=== PATIENT | female | born 1975 | race African-American/Black ===

== ENCOUNTER 2016-12-25 20:39 | Emergency (ER) | payer BC ==
[~2016-12-25] VITALS: Ht 177.8 cm; Wt 54.4 kg
[~2016-12-25 20:39] MED LIST: HYDR-2758 PO; LEVO25TA55 PO; LEVO500T59 PO; LEVO88TA2 PO; TAMS0.4C97 PO
--- NOTE | 2016-12-25 20:59 | PHYS DOC ---
Past Medical History Past Medical History: Hypothyroid, Kidney Stone Additional Past Medical Histor: THYROID CANCER Past Surgical History: Other Additional Past Surgical Histo: thyroidectomy Alcohol Use: None Drug Use: None Adult General Chief Complaint Chief Complaint: ABDOMINAL PAIN HPI HPI Patient is a 41 year old female presenting to the emergency department for sudden onset left flank and left lower abdominal pain that started approximately 1.5 hours prior to arrival. Patient says that she has had a kidney stone in the past but this feels very similar she has severe sudden onset pain with nausea and vomiting. She appears uncomfortable but is nontoxic in appearance. Review of Systems Review of Systems Constitutional: Denies fever or chills [] Respiratory: Denies cough or shortness of breath [] Cardiovascular: No additional information not addressed in HPI [] GI: + abdominal pain, nausea, vomiting. No bloody stools or diarrhea [] : Denies dysuria or hematuria [] Musculoskeletal: + back pain. No joint pain [] Integument: Denies rash or skin lesions [] Neurologic: Denies headache, focal weakness or sensory changes [] Current Medications Current Medications Current Medications Medications (Trade) Dose Ordered Sig/Melissa Start Time Stop Time Status Last Admin Dose Admin Fentanyl Citrate (Fentanyl 2ml Vial) 75 mcg 1X ONCE 12/25/16 21:30 12/25/16 21:31 DC 12/25/16 21:29 75 MCG Ketorolac Tromethamine (Toradol) 30 mg 1X ONCE 12/25/16 21:30 12/25/16 21:31 DC 12/25/16 21:29 30 MG Ondansetron HCl (Zofran) 8 mg 1X ONCE 12/25/16 21:30 12/25/16 21:31 DC 12/25/16 21:30 4 MG Oxycodone/ Acetaminophen (Percocet 5/325) 2 tab 1X ONCE 12/25/16 23:30 12/25/16 23:31 Potassium Chloride (Klor-Con) 40 meq 1X ONCE 12/25/16 23:30 12/25/16 23:31 Sodium Chloride 1,000 ml @ 1,000 mls/hr 1X ONCE 12/25/16 21:30 12/25/16 22:29 DC 12/25/16 21:30 1,000 MLS/HR Tamsulosin HCl (Flomax) 0.4 mg 1X ONCE 12/25/16 23:30 12/25/16 23:31 Allergies Allergies Allergies Coded Allergies Type Severity Reaction Last Updated Verified codeine Allergy Intermediate "I DONT KNOW THEY JUST TOLD ME I AM" 03/15/16 Yes Physical Exam Physical Exam Constitutional: Well developed, well nourished, no acute distress, non-toxic appearance. [] Cardiovascular:Heart rate regular rhythm, no murmur [] Lungs & Thorax: Bilateral breath sounds clear to auscultation [] Abdomen: Bowel sounds normal, soft, no tenderness, no masses, no pulsatile masses. [] Skin: Warm, dry, no erythema, no rash. [] Back: No tenderness, + L CVA tenderness. [] Current Patient Data Vital Signs Vital Signs Date Time Temp Pulse Resp B/P (MAP) Pulse Ox O2 Delivery O2 Flow Rate FiO2 12/25/16 21:29 22 100 Room Air 12/25/16 20:48 98.7 71 145/94 (111) 98.7 Lab Values Laboratory Tests Test 12/25/16 20:01 12/25/16 20:50 12/25/16 21:00 POC Urine HCG, Qualitative Hcg negative (Negative) Urine Collection Type Unknown Urine Color Yellow Urine Clarity Clear Urine pH 7.0 Urine Specific [place] 1.025 Urine Protein Negative mg/dL (NEG-TRACE) Urine Glucose (UA) Negative mg/dL (NEG) Urine Ketones (Stick) Trace mg/dL (NEG) Urine Blood Large (NEG) Urine Nitrite Negative (NEG) Urine Bilirubin Negative (NEG) Urine Urobilinogen Dipstick 1.0 mg/dL (0.2 mg/dL) Urine Leukocyte Esterase Negative (NEG) Urine RBC Tntc /HPF (0-2) Urine WBC 11-20 /HPF (0-4) Urine Squamous Epithelial Cells Mod /LPF Urine Bacteria Moderate /HPF (0-FEW) Urine Mucus Mod /LPF Urine Opiates Screen Neg (NEG) Urine Methadone Screen Neg (NEG) Urine Barbiturates Neg (NEG) Urine Phencyclidine Screen Neg (NEG) Urine Amphetamine/Methamphetamine Neg (NEG) Urine Benzodiazepines Screen Neg (NEG) Urine Cocaine Screen Neg (NEG) Urine Cannabinoids Screen Pos (NEG) Urine Ethyl Alcohol Neg (NEG) White Blood Count 5.8 x10^3/uL (4.0-11.0) Red Blood Count 3.53 x10^6/uL (3.50-5.40) Hemoglobin 12.1 g/dL (12.0-15.5) Hematocrit 35.7 % (36.0-47.0) L Mean Corpuscular Volume 101 fL (79-100) H Mean Corpuscular Hemoglobin 34 pg (25-35) Mean Corpuscular Hemoglobin Concent 34 g/dL (31-37) Red Cell Distribution Width 13.6 % (11.5-14.5) Platelet Count 204 x10^3/uL (140-400) Neutrophils (%) (Auto) 54 % (31-73) Lymphocytes (%) (Auto) 39 % (24-48) Monocytes (%) (Auto) 7 % (0-9) Eosinophils (%) (Auto) 1 % (0-3) Basophils (%) (Auto) 0 % (0-3) Neutrophils # (Auto) 3.1 x10^3uL (1.8-7.7) Lymphocytes # (Auto) 2.3 x10^3/uL (1.0-4.8) Monocytes # (Auto) 0.4 x10^3/uL (0.0-1.1) Eosinophils # (Auto) 0.0 x10^3/uL (0.0-0.7) Basophils # (Auto) 0.0 x10^3/uL (0.0-0.2) Sodium Level 140 mmol/L (136-145) Potassium Level 3.3 mmol/L (3.5-5.1) L Chloride Level 103 mmol/L (98-107) Carbon Dioxide Level 25 mmol/L (21-32) Anion Gap 12 (6-14) Blood Urea Nitrogen 12 mg/dL (7-20) Creatinine 1.3 mg/dL (0.6-1.0) H Estimated GFR (Cockcroft-Gault) 54.4 BUN/Creatinine Ratio 9 (6-20) Glucose Level 92 mg/dL (70-99) Calcium Level 9.2 mg/dL (8.5-10.1) Total Bilirubin 0.5 mg/dL (0.2-1.0) Aspartate Amino Transferase (AST) 92 U/L (15-37) H Alanine Aminotransferase (ALT) 79 U/L (14-59) H Alkaline Phosphatase 47 U/L (46-116) Total Protein 8.3 g/dL (6.4-8.2) H Albumin 4.7 g/dL (3.4-5.0) Albumin/Globulin Ratio 1.3 (1.0-1.7) Lipase 198 U/L (73-393) Ethyl Alcohol Level < 10 mg/dL (0-10) Laboratory Tests 12/25/16 21:00 Laboratory Tests 12/25/16 21:00 EKG EKG [] Radiology/Procedures Radiology/Procedures Examination: CT of the abdomen pelvis without contrast HISTORY: History of left flank pain COMPARISON: 03/14/2016 TECHNIQUE: Axial CT images of the abdomen pelvis were performed without contrast. Coronal and sagittal reformatted performed Exposure: One or more of the following individualized dose reduction techniques were utilized for this examination: 1. Automated exposure control 2. Adjustment of the mA and/or kV according to patient size 3. Use of iterative reconstruction technique FINDINGS: The visualized bibasilar lungs grossly appears unremarkable. No evidence of free air identified in the abdomen. Examination is extremely limited without oral and IV contrast. The examination is limited due to also due to lack of significant intra-abdominal fat and due to diffuse mottling artifact which limits evaluation. The visualized noncontrasted liver, spleen, grossly appears unremarkable. Probable mild distended gallbladder. The stomach is mildly distended. The small bowel does not appear to be dilated. The appendix cannot be identified on this examination. Feces and gas noted throughout the colon. Urinary bladder is mildly distended. 3 mm intrarenal collecting system calculus identified in the right kidney. There is a punctate 2 mm intrarenal collecting system calculus identified in the left kidney. Probable moderate left-sided hydronephrosis and hydroureter identified. There is a tiny 3 mm calculus identified at the left uterovesical junction, best visualized on series 2 image 185. The evaluation of the pelvis is limited due to streak artifact. Mild aortic atherosclerosis. No evidence of lytic bony destructive lesion. IMPRESSION: 1. Extremely limited examination due to lack of significant intra-abdominal fat and due to marking artifact. Grossly there appears to be moderate left-sided hydronephrosis and hydroureter with probable 3 mm calculus identified in the left uterovesical junction. Electronically signed by: Rosendo June MD (12/25/2016 10:30 PM) [facility] DICTATED and SIGNED BY: ROSENDO JUNE MD DATE: 12/25/162222 Course & Med Decision Making Course & Med Decision Making Patient with clinical picture and CT consistent with left distal ureter stone. Her pain improved to a 3 out of 10 after Toradol and fentanyl and she has no further nausea and vomiting. Stone is quite low and her symptoms are controlled with a small to moderate sized stone she'll be discharged with Flomax told to take ibuprofen drink clear fluids and follow with her primary care provider for urology follow-up. I told her [place] does not have a urologist on staff anymore and if she wants further urologic care she needs to get referral by PCP or follow with another hospital such as or [facility]. Patient aware and agreeable with plan for discharge and verbalized understanding of the need for short-term follow-up in the strict ER return precautions discussed including worsening pain fevers vomiting or other general concerns. Of note there is no signs of urine tract infection in her urine. Dragon Disclaimer Dragon Disclaimer This electronic medical record was generated, in whole or in part, using a voice recognition dictation system. Departure Departure Impression: Primary Impression: Ureteral stone with hydronephrosis Disposition: HOME, SELF-CARE Condition: STABLE Referrals: NO PCP (PCP) Patient Instructions: Ureteral Colic Additional Instructions: TAKE 400MG OF IBUPROFEN EVERY 6 HOURS AND THE PERCOCET FOR BREAKTHROUGH PAIN. DRINK PLENTY OF FLUIDS. IF YOU HAVE WORSENING PAIN, FEVERS, VOMITING YOU CAN COME BACK HERE, JUST BE AWARE THAT WE DO NOT HAVE A UROLOGIST ON STAFF AND MAY HAVE TO TRANSFER YOU TO [facility] OR [facility]. Scripts Tamsulosin Hcl (FLOMAX) 0.4 Mg Cap.er.24h 1 CAP PO DAILY, #10 CAP 0 Refills Prov: RAFAT STAPLETON DO 12/25/16 Ondansetron (ZOFRAN ODT) 4 Mg Tab.rapdis 4 MG PO BID Y for NAUSEA/VOMITING, #14 TAB Prov: RAFAT STAPLETON DO 12/25/16 Oxycodone/Apap 5-325 (PERCOCET 5-325 MG TABLET) 1 Each Tablet 1 TAB PO PRN Q6HRS Y for PAIN, #20 TAB 0 Refills Prov: RAFAT STAPLETON DO 12/25/16 RAFAT STAPLETON DO Dec 25, 2016 20:59
[2016-12-25 21:14] LABS: BASO % 0 % (0-3); EOS % 1 % (0-3); HEMATOCRIT 35.7 % (36.0-47.0); HEMOGLOBIN 12.1 g/dL (12.0-15.5); LYMPH # 2.3 x10^3/uL (1.0-4.8); LYMPH % 39 % (24-48); MEAN CORPUSCULAR HEMOGLOBIN 34 pg (25-35); MEAN CORPUSCULAR HGB CONC 34 g/dL (31-37); MEAN CORPUSCULAR VOLUME 101 fL (79-100); MONO % 7 % (0-9); NEUT % 54 % (31-73); PLATELET COUNT 204 x10^3/uL (140-400); RED BLOOD COUNT 3.53 x10^6/uL (3.50-5.40); RED CELL DISTRIBUTION WIDTH 13.6 % (11.5-14.5); WHITE BLOOD COUNT 5.8 x10^3/uL (4.0-11.0)
[2016-12-25 21:16] LABS: BILIRUBIN,URINE NEGATIVE (NEG); GLUCOSE,URINE NEGATIVE (NEG); NITRITE,URINE NEGATIVE (NEG); PROTEIN,URINE NEGATIVE (NEG-TRACE)
[2016-12-25 21:23] LABS: BARBITURATES NEG (NEG); BENZODIAZEPINES NEG (NEG); CANNABINOIDS POS (NEG); COCAINE NEG (NEG); METHADONE NEG (NEG); OPIATES NEG (NEG); PHENCYCLIDINE NEG (NEG)
[2016-12-25 21:25] LABS: BACTERIA,URINE MODERATE /HPF (0-FEW); RBC,URINE TNTC /HPF (0-2)
[2016-12-25 21:26] LABS: SQUAMOUS EPITHELIAL CELL,UR MOD /LPF
[2016-12-25 21:27] LABS: CALCIUM 9.2 mg/dL (8.5-10.1); CREATININE 1.3 mg/dL (0.6-1.0); GFR 54.4; POTASSIUM 3.3 mmol/L (3.5-5.1)
[2016-12-25] MEDS ORDERED: ONDANSETRON PF 4 MG/2 ML VIAL. IV ONE (21:30)
[2016-12-25] MEDS ORDERED: KETOROLAC 30 MG/ML INJ. IV ONE (21:30)
[2016-12-25] MEDS ORDERED: IV NORMAL SALINE 1000ML BAG 1,000 ML IV ONE (21:30)
[2016-12-25] MEDS ORDERED: fentaNYL PF VIAL 100 MCG/2 ML VIAL IV ONE (21:30)
[2016-12-25 21:33] LABS: ALBUMIN 4.7 g/dL (3.4-5.0); ALBUMIN/GLOBULIN RATIO 1.3 (1.0-1.7); TOTAL BILIRUBIN 0.5 mg/dL (0.2-1.0); TOTAL PROTEIN 8.3 g/dL (6.4-8.2)
--- NOTE | 2016-12-25 22:33 | RAD ---
Examination: CT of the abdomen pelvis without contrast HISTORY: History of left flank pain COMPARISON: 03/14/2016 TECHNIQUE: Axial CT images of the abdomen pelvis were performed without contrast. Coronal and sagittal reformatted performed Exposure: One or more of the following individualized dose reduction techniques were utilized for this examination: 1. Automated exposure control 2. Adjustment of the mA and/or kV according to patient size 3. Use of iterative reconstruction technique FINDINGS: The visualized bibasilar lungs grossly appears unremarkable. No evidence of free air identified in the abdomen. Examination is extremely limited without oral and IV contrast. The examination is limited due to also due to lack of significant intra-abdominal fat and due to diffuse mottling artifact which limits evaluation. The visualized noncontrasted liver, spleen, grossly appears unremarkable. Probable mild distended gallbladder. The stomach is mildly distended. The small bowel does not appear to be dilated. The appendix cannot be identified on this examination. Feces and gas noted throughout the colon. Urinary bladder is mildly distended. 3 mm intrarenal collecting system calculus identified in the right kidney. There is a punctate 2 mm intrarenal collecting system calculus identified in the left kidney. Probable moderate left-sided hydronephrosis and hydroureter identified. There is a tiny 3 mm calculus identified at the left uterovesical junction, best visualized on series 2 image 185. The evaluation of the pelvis is limited due to streak artifact. Mild aortic atherosclerosis. No evidence of lytic bony destructive lesion. IMPRESSION: 1. Extremely limited examination due to lack of significant intra-abdominal fat and due to marking artifact. Grossly there appears to be moderate left-sided hydronephrosis and hydroureter with probable 3 mm calculus identified in the left uterovesical junction. Electronically signed by: Rosendo June MD (12/25/2016 10:30 PM) [facility]
[2016-12-25] MEDS ORDERED: ONDA4TAB10 PO (23:22)
[2016-12-25] MEDS ORDERED: TAMS0.4C97 PO (23:22)
[2016-12-25] MEDS ORDERED: OXYC-323 PO (23:22)
[2016-12-25] MEDS ORDERED: TAMSULOSIN 0.4 MG CAP.ER.24H. PO ONE (23:30)
[2016-12-25] MEDS ORDERED: oxyCODONE/APAP 5/325 1 TAB TABLET PO ONE (23:30)
[2016-12-25] MEDS ORDERED: POTASSIUM CHLORIDE 20 MEQ TABLET.ER. PO ONE (23:30)
[2016-12-25 23:47] VITALS: BP 131/79
== END 2016-12-26 00:25 | disposition home or self-care (01) ==
LOC: ER 20:39
DX: N13.2 Hydronephrosis with renal and ureteral calculous obstruction (principal); E89.0 Postprocedural hypothyroidism; Z87.442 Personal history of urinary calculi; Z88.5 Allergy status to narcotic agent
CPT/HCPCS: 36415; 74176; 80053; 80307; 81001; 81025; 83690; 85025; 87086; 96361; 96374; 96375; 99285; G0480; J1885; J2405; J3010; J7030; G0479

== ENCOUNTER 2016-12-26 21:49 | Emergency (ER) | payer BC ==
[~2016-12-26] VITALS: Ht 177.8 cm; Wt 54.4 kg
[~2016-12-26 21:49] MED LIST changes: +ONDA4TAB10 PO; +OXYC-323 PO
[2016-12-26 22:42] LABS: BASO # 0.1 x10^3/uL (0.0-0.2); BASO % 1 % (0-3); EOS % 0 % (0-3); HEMATOCRIT 36.9 % (36.0-47.0); HEMOGLOBIN 12.8 g/dL (12.0-15.5); LYMPH # 0.9 x10^3/uL (1.0-4.8); LYMPH % 9 % (24-48); MEAN CORPUSCULAR HEMOGLOBIN 34 pg (25-35); MEAN CORPUSCULAR HGB CONC 35 g/dL (31-37); MEAN CORPUSCULAR VOLUME 99 fL (79-100); MONO % 6 % (0-9); NEUT % 84 % (31-73); PLATELET COUNT 225 x10^3/uL (140-400); RED BLOOD COUNT 3.73 x10^6/uL (3.50-5.40); RED CELL DISTRIBUTION WIDTH 13.8 % (11.5-14.5); WHITE BLOOD COUNT 9.7 x10^3/uL (4.0-11.0)
[2016-12-26 22:53] LABS: CALCIUM 8.7 mg/dL (8.5-10.1); CREATININE 1.7 mg/dL (0.6-1.0); GFR 39.9
[2016-12-26 22:59] LABS: ALBUMIN 4.1 g/dL (3.4-5.0); ALBUMIN/GLOBULIN RATIO 1.1 (1.0-1.7); TOTAL BILIRUBIN 0.8 mg/dL (0.2-1.0); TOTAL PROTEIN 7.9 g/dL (6.4-8.2)
[2016-12-26] MEDS ORDERED: fentaNYL PF VIAL 100 MCG/2 ML VIAL IV ONE (23:30)
[2016-12-27] MEDS ORDERED: KETOROLAC 15 MG/ML VIAL. IV ONE (00:45)
[2016-12-27] MEDS ORDERED: ONDANSETRON PF 4 MG/2 ML VIAL. IV ONE (00:45)
[2016-12-27] MEDS ORDERED: IV NORMAL SALINE 1000ML BAG 1,000 ML IV ONE ×2 (01:30)
[2016-12-27] MEDS ORDERED: KETOROLAC 30 MG/ML INJ. IV ONE (01:30)
[2016-12-27] MEDS ORDERED: HYDROcodone/APAP 5/325MG 1 TAB TABLET PO ONE (03:00)
--- NOTE | 2016-12-27 03:35 | PHYS DOC ---
Past Medical History Past Medical History: Hypothyroid, Kidney Stone Additional Past Medical Histor: THYROID CANCER Past Surgical History: Other Additional Past Surgical Histo: thyroidectomy Alcohol Use: None Drug Use: None Adult General Chief Complaint Chief Complaint: ABDOMINAL PAIN HPI HPI Patient is a 41 year old AA female evaluated in this emergency department last night for left lower quadrant pain who was diagnosed with a kidney stone and return home who presents with nausea vomiting and inability to keep fluids and pain medications down. Patient is unable to keep Zofran down. Patient reports persistent left lower quadrant pain. She denies back pain, fever chills, and sweats. No urinary urgency frequency or dysuria. No other acute symptoms or complaints. Review of Systems Review of Systems Review symptoms as per history of present illness. All other review symptoms are negative. Current Medications Current Medications Current Medications Medications (Trade) Dose Ordered Sig/Melissa Start Time Stop Time Status Last Admin Dose Admin Acetaminophen/ Hydrocodone Bitart (Lortab 5/325) 1 tab 1X ONCE 12/27/16 03:00 12/27/16 03:18 DC 12/27/16 03:08 1 TAB Fentanyl Citrate (Fentanyl 2ml Vial) 50 mcg 1X ONCE 12/27/16 04:15 12/27/16 04:16 DC 12/27/16 04:18 50 MCG Ketorolac Tromethamine (Toradol) 30 mg 1X ONCE 12/27/16 01:30 12/27/16 02:05 DC Morphine Sulfate 4 mg 1X ONCE 12/27/16 06:00 12/27/16 06:01 Ondansetron HCl (Zofran) 8 mg 1X ONCE 12/27/16 00:45 12/27/16 00:46 DC 12/27/16 01:15 8 MG Promethazine HCl 12.5 mg/Sodium Chloride 50.5 ml @ 151.5 mls/ hr PRN Q6HRS PRN 12/27/16 05:45 Sodium Chloride 1,000 ml @ 1,000 mls/hr 1X ONCE 12/27/16 01:30 12/27/16 02:29 DC 12/27/16 01:05 1,000 MLS/HR Allergies Allergies Allergies Coded Allergies Type Severity Reaction Last Updated Verified codeine Allergy Intermediate "I DONT KNOW THEY JUST TOLD ME I AM" 03/15/16 Yes Physical Exam Physical Exam Constitutional: Well developed, well nourished, no acute distress, non-toxic appearance. [] HENT: Normocephalic, atraumatic, bilateral external ears normal, oropharynx moist, no oral exudates, nose normal. [] Eyes: PERRLA, EOMI, conjunctiva normal, no discharge. [] Neck: Normal range of motion, no tenderness, supple, no stridor. [] Cardiovascular:Heart rate regular rhythm, no murmur [] Lungs & Thorax: Bilateral breath sounds clear to auscultation [] Abdomen: Bowel sounds normal, soft, left lower quadrant pain, no tenderness rebound rigidity.[] Skin: Warm, dry, no erythema, no rash. [] Back: No tenderness, no CVA tenderness. [] Extremities: No tenderness, no cyanosis, no clubbing, ROM intact, no edema. [] Neurologic: Alert and oriented X 3, normal motor function, normal sensory function, no focal deficits noted. [] Psychologic: Affect normal, judgement normal, mood normal. [] Current Patient Data Vital Signs Vital Signs Date Time Temp Pulse Resp B/P (MAP) Pulse Ox O2 Delivery O2 Flow Rate FiO2 12/27/16 04:18 16 98 Room Air 12/27/16 03:06 52 12/26/16 22:00 97.7 156/89 (111) 97.7 Lab Values Laboratory Tests Test 12/26/16 22:30 White Blood Count 9.7 x10^3/uL (4.0-11.0) Red Blood Count 3.73 x10^6/uL (3.50-5.40) Hemoglobin 12.8 g/dL (12.0-15.5) Hematocrit 36.9 % (36.0-47.0) Mean Corpuscular Volume 99 fL (79-100) Mean Corpuscular Hemoglobin 34 pg (25-35) Mean Corpuscular Hemoglobin Concent 35 g/dL (31-37) Red Cell Distribution Width 13.8 % (11.5-14.5) Platelet Count 225 x10^3/uL (140-400) Neutrophils (%) (Auto) 84 % (31-73) H Lymphocytes (%) (Auto) 9 % (24-48) L Monocytes (%) (Auto) 6 % (0-9) Eosinophils (%) (Auto) 0 % (0-3) Basophils (%) (Auto) 1 % (0-3) Neutrophils # (Auto) 8.2 x10^3uL (1.8-7.7) H Lymphocytes # (Auto) 0.9 x10^3/uL (1.0-4.8) L Monocytes # (Auto) 0.6 x10^3/uL (0.0-1.1) Eosinophils # (Auto) 0.0 x10^3/uL (0.0-0.7) Basophils # (Auto) 0.1 x10^3/uL (0.0-0.2) Sodium Level 136 mmol/L (136-145) Potassium Level 4.0 mmol/L (3.5-5.1) Chloride Level 99 mmol/L (98-107) Carbon Dioxide Level 26 mmol/L (21-32) Anion Gap 11 (6-14) Blood Urea Nitrogen 10 mg/dL (7-20) Creatinine 1.7 mg/dL (0.6-1.0) H Estimated GFR (Cockcroft-Gault) 39.9 BUN/Creatinine Ratio 6 (6-20) Glucose Level 112 mg/dL (70-99) H Calcium Level 8.7 mg/dL (8.5-10.1) Total Bilirubin 0.8 mg/dL (0.2-1.0) Aspartate Amino Transferase (AST) 80 U/L (15-37) H Alanine Aminotransferase (ALT) 70 U/L (14-59) H Alkaline Phosphatase 48 U/L (46-116) C-Reactive Protein, Quantitative 1.0 mg/L (0-3.3) Total Protein 7.9 g/dL (6.4-8.2) Albumin 4.1 g/dL (3.4-5.0) Albumin/Globulin Ratio 1.1 (1.0-1.7) Lipase 113 U/L (73-393) Laboratory Tests 12/26/16 22:30 Laboratory Tests 12/26/16 22:30 EKG EKG [] Radiology/Procedures Radiology/Procedures [CT abdomen pelvis: Moderate hydronephrosis, hydroureter with ~ 5 mm stone at L UVJ. ] Course & Med Decision Making Course & Med Decision Making Pertinent Labs and Imaging studies reviewed. (See chart for details) [CT abdomen pelvis reviewed and reveals distal UVJ stone moderate [place] nephrosis. Patient given nausea, pain medication and IV fluids in the ED. No vomiting observed. Symptoms significant improved. We'll continue supportive treatment with PCP follow-up for referral to urology. Return precautions reviewed. Patient name and nausea pearly controlled. Repeat narcotics given. Patient continues to have nausea without vomiting. Unfortunately, there is no urology coverage at this facility. Dr. Hwang at [facility] accepts for transfer patient. ] [place] Disclaimer Dragon Disclaimer This electronic medical record was generated, in whole or in part, using a voice recognition dictation system. Departure Departure Impression: Primary Impression: Nausea and vomiting Additional Impression: Kidney stone Disposition: 01 HOME, SELF-CARE Condition: GOOD Patient Instructions: Kidney Stones, [id number], Nausea and Vomiting, Easy-to -Read Additional Instructions: Please go home and rest. Take Phenergan for nausea and increase fluids. Take Zofran for additional nausea relief.Continue hydrocodone and Flomax. Follow-up with your PCP for urology referral. Return to the ED if new or worsening symptoms. Problem Qualifiers AMI PETERSON DO Dec 27, 2016 03:35
[2016-12-27] MEDS ORDERED: fentaNYL PF VIAL 100 MCG/2 ML VIAL IV ONE (04:15)
[2016-12-27] MEDS ORDERED: PROMETHAZINE 12.5 MG in IV NORMAL SALINE 50ML 50 ML IV PRN (05:45)
[2016-12-27] MEDS ORDERED: MORPHINE SULFATE 4 MG/ML DISP.SYRIN. IV ONE (06:00)
--- NOTE | 2016-12-27 06:21 | RAD ---
INDICATION: left flank pain COMPARISON: December 25, 2016 TECHNIQUE: Axial CT images were obtained through the abdomen and pelvis without intravenous contrast. Limited assessment of solid organ structures and vasculature secondary to lack of intravenous contrast. One or more of the following individualized dose reduction techniques were utilized for this examination: 1. Automated exposure control; 2. Adjustment of the mA and/or kV according to patient size; 3. Use of iterative reconstruction technique. FINDINGS: Mild groundglass opacities at lung bases. There is some calcific atherosclerosis identified. Poor evaluation of abdominal aorta secondary to lack of contrast and very little intra-abdominal fat. No definite intrahepatic bile duct dilation. Pancreas poorly evaluated without contrast. There may be some edema within the intra-abdominal fat. Splenic calcified granulomas. Bilateral nonobstructive renal stones. Left greater than right perinephric edema. Left-sided moderate hydronephrosis and hydroureter. Repeat demonstration of several calcifications within the left hemipelvis. One of these may be secondary to a left distal ureter stone. Measures approximately 3 mm. Bladder is distended with urine at time of exam. Free fluid in the pelvis. Poor evaluation of the bowel without intravenous or oral contrast there is not definite dilated loops of bowel suggest obstruction. There are some degenerative changes of the spine. IMPRESSION: 1. Repeat demonstration of left-sided hydronephrosis and hydroureter with a suspected 3 mm left distal ureter stone. 2. Very limited evaluation of the solid organ structures, bowel and vasculature secondary to lack of intravenous and oral contrast as well as lack of intra-abdominal fat. 3. Multiple additional nonobstructive bilateral renal stones. 4. There is some edema seen throughout the soft tissues as well as small amount of free fluid. 5. Mild groundglass opacities at lower lungs. Could be secondary to mild edema or pneumonitis. 6. Some of the regions of bowel wall including the colon appear mildly prominent. This could be secondary to lack of distention but cannot exclude colonic wall thickening on this exam from causes such as colitis. Electronically signed by: Emile Reaves MD (12/27/2016 6:18 AM) [id number]
[2016-12-27 07:17] VITALS: BP 134/84
== END 2016-12-27 08:38 | disposition home or self-care (01) ==
LOC: ER 21:49
DX: N13.2 Hydronephrosis with renal and ureteral calculous obstruction (principal); E89.0 Postprocedural hypothyroidism; Z88.5 Allergy status to narcotic agent; Z87.442 Personal history of urinary calculi
CPT/HCPCS: 36415; 74176; 80053; 83690; 85025; 86140; 96361; 96365; 96375; 96376; 99285; J1885; J2405; J2550; J3010; J7030

== ENCOUNTER 2021-09-12 08:09 | Inpatient (IN) | payer BC ==
[~2021-09-12] VITALS: Ht 177.8 cm; Wt 59.2 kg
[~2021-09-12 08:09] MED LIST changes: -HYDR-2758 PO; +HYDR-2761 PO; -LEVO88TA2 PO; +LEVO88TA70 PO; -OXYC-323 PO; +OXYC1TAB15 PO
--- NOTE | 2021-09-12 09:01 | PDOC2 ---
NEUROLOGY CONSULT Date of Service DOS: DATE: 09/12/21 TIME: 08:00 Current Medications Current Medications Active Scripts Active Flomax (Tamsulosin Hcl) 0.4 Mg Cap.er.24h 1 Cap PO DAILY Zofran Odt (Ondansetron) 4 Mg Tab.rapdis 4 Mg PO BID PRN Percocet 5-325 Mg Tablet (Oxycodone/Acetaminophen) 1 Each Tablet 1 Tab PO PRN Q6HRS PRN Levaquin (Levofloxacin) 500 Mg Tablet 500 Mg PO DAILY06 Flomax (Tamsulosin Hcl) 0.4 Mg Cap.er.24h 0.4 Mg PO QHS Synthroid (Levothyroxine Sodium) 88 Mcg Tablet 88 Mcg PO DAILY07 Hydrocodone-Apap 5-325 (Hydrocodone Bit/Acetaminophen) 1 Each Tablet 1 Tab PO PRN Q4HRS PRN Allergies Allergies: Allergies Coded Allergies Type Severity Reaction Last Updated Verified codeine Allergy Intermediate "I DONT KNOW THEY JUST TOLD ME I AM" 03/15/16 Yes ROS Review of System The patient denies any associated fevers, chills, headache, ear pain, rhinorrhea, sore throat, stiff neck, productive cough, chest pain, shortness of breath, back or flank pain, abdominal pain, nausea, vomiting, diarrhea, constipation, dysuria, rash, numbness, weakness, tingling, incontinence, difficulty ambulating, or diaphoresis. Physical Exam Physical Exam General: Well developed, well nourished, no acute distress, well appearing HEENT: Pupils equally round and reactive to light, EOMI, no discharge, normal conjunctiva Neck: Supple, no nuchal rigidity, no JVD, trachea midline, no tenderness Cardiac: RRR, no murmurs, no gallops, no rubs Chest/Lungs: CTAB, no wheeze, no rhonchi, no crackles Abdomen: soft, non-distended, no guarding, no peritoneal signs, non-tender Back: No tenderness Extremities: no edema, pulses intact, non-tender,capillary refill <3 sec bilate ral upper and lower extremities, Neuro: Alert and oriented x 4, no focal deficits, normal speech Vitals Vitals: Vital Signs Date Time Temp Pulse Resp B/P (MAP) Pulse Ox O2 Delivery O2 Flow Rate FiO2 09/12/21 08:28 98.6 54 18 155/85 (108) 100 Room Air 98.6 Labs Labs Laboratory Tests Test 09/12/21 08:26 Glucose (Fingerstick) 82 mg/dL (70-99) Laboratory Tests Test 09/12/21 08:26 Glucose (Fingerstick) 82 mg/dL (70-99) Assessment/Plan Assessment/Plan [facility] Consult Note # Demographics Consult Type: Acute Stroke Level 1 (0-4.5 hrs) Patient Location: Emergency Room First Name: avinash Last Name: Age: 46 Gender: Female Facility: [facility] Time of Initial Page (Central Time): 09/12/2021, 08:50 Time of Return Call (Central Time): 09/12/2021, 08:50 # HPI History: 46F says she was trying to put toothbrush back after brushing with right arm. Last well time per patient was 3 months ago. Clarification for symptoms she presented with today, she did not feel normal upon waking. Normal to bed last night. # Scores Level of Consciousness 1a: [0] = Alert; keenly responsive LOC Questions 1b: [0] = Answers both questions correctly LOC Commands 1c: [0] = Performs both tasks correctly Best Gaze 2: [0] = Normal Visual 3: [0] = No visual loss Facial Palsy 4: [0] = Normal symmetrical movements Motor Arm Left 5a: [0] = No drift Motor Arm Right 5b: [1] = Drift Motor Leg Left 6a: [0] = No drift Motor Leg Right 6b: [0] = No drift Limb Ataxia 7: [0] = Absent Sensory 8: [0] = Normal Best Language 9: [0] = No aphasia Dysarthria 10: [0] = Normal Extinction and Inattention 11: [0] = No abnormality NIHSS Total: 1 # PMH-FH-SH Past Medical History: hypothyroid Medications: synthroid # Assessment Impression: Ischemic Stroke (Acute) # Plan Thrombolytic/Intervention: NOT IV Thrombolysis or IA Intervention candidate Thrombolytic Exclusion (< 3 hour window): time of onset unclear Thrombolytic Exclusion: > 4.5 hours Intraarterial Exclusion: clinically consistent with small vessel disease Target Blood Pressure: SBP < 220 Labs: B12 TSH Imaging: (urgency: routine): MR Angiogram Head without contrast MR Angiogram Neck with contrast MRI Brain without contrast Diagnostic Test: echo with bubble study Medication: aspirin 81 mg PLUS clopidogrel (Plavix) 75 mg for 21 days, then monotherapy therafter start statin with goal of LDL < 70 Other: LDL < 70 permissive hypertension telemetry monitoring I have discussed my recommendations with the referring provider Additional Recommendations: If stroke not found on MRI brain, this could be complex migraine or other mimic. Disposition: admit # Logistics Telemedicine: Interactive 2 way audio and visual telecommunication technology was utilized during this visit DARCY SUN MD September 12, 2021 09:01
--- NOTE | 2021-09-12 09:02 | RAD ---
CT STROKE HEAD W/O History: Reason: stroke alert / Spl. Instructions: / History: Comparison: None. Technique: Noncontrast CT imaging was performed of the head. Exposure: One or more of the following individualized dose reduction techniques were utilized for thi s examination: 1. Automated exposure control 2. Adjustment of the mA and/or kV according to patient size 3. Use of iterative reconstruction technique. Findings: No intracranial hemorrhage. No mass effect. No hydrocephalus. Extra-axial spaces are unremarkable. Imaged orbits are unremarkable. Imaged paranasal sinuses and mastoid air cells are clear. No acute ca lvarial fracture. Small right frontal calvarial outer table benign exostosis measures 0.6 x 0.3 cm. Impression: 1. No acute intracranial abnormality. FOR INTERNAL CODING PURPOSES Critical result: Findings discussed with NAIDA GOFF MD at 09/12/2021 8:58 AM. RESULT CODE: (C) Electronically signed by: Donny Lockett DO (09/12/2021 8:59 AM) [id number]
--- NOTE | 2021-09-12 09:03 | RAD ---
XR CHEST 1V History: Stroke alert Comparison: None. Technique: AP radiograph of the chest. Findings: The lungs are adequately and symmetrically inflated. No airspace consolidation, pleural effusion or p neumothorax. The cardiomediastinal silhouette and pulmonary vasculature are within normal limits. No acute osseous abnormality. Soft tissues are unremarkable. Impression: 1. No acute cardiopulmonary process. Electronically signed by: Scott Tsai MD (09/12/2021 9:00 AM) [id number]
[2021-09-12 09:09] LABS: BASO # 0.1 x10^3/uL (0.0-0.2); BASO % 1 % (0-3); EOS % 1 % (0-3); HEMATOCRIT 36.5 % (36.0-47.0); HEMOGLOBIN 12.3 g/dL (12.0-15.5); LYMPH # 1.7 x10^3/uL (1.0-4.8); LYMPH % 27 % (24-48); MEAN CORPUSCULAR HEMOGLOBIN 34 pg (25-35); MEAN CORPUSCULAR HGB CONC 34 g/dL (31-37); MEAN CORPUSCULAR VOLUME 102 fL (79-100); MONO # 0.4 x10^3/uL (0.0-1.1); MONO % 6 % (0-9); NEUT # 3.9 x10^3/uL (1.8-7.7); NEUT % 65 % (31-73); PLATELET COUNT 305 x10^3/uL (140-400); RED BLOOD COUNT 3.58 x10^6/uL (3.50-5.40); RED CELL DISTRIBUTION WIDTH 13.6 % (11.5-14.5); WHITE BLOOD COUNT 6.1 x10^3/uL (4.0-11.0)
--- NOTE | 2021-09-12 10:15 | PDOC1 ---
History and Physical Date of Admission Date of Admission DATE: 09/12/21 TIME: 10:14 Identification/Chief Complaint Chief Complaint Right arm weakness Source Source: Patient History of Present Illness History of Present Illness Ms Arreguin is a 46yo female with PMHx hypothyroidism s/p total thyroidectomy who comes into ED c/o right hand uncoordination. At 7:15 in the morning says she was trying to put toothbrush into her mouth and missed, and missed trying to place it back after brushing with right arm. She also tried to login using her password on her computer for work and continue to hit the wrong babcock. She notes she is also had bilateral lower extremity numbness that has been going on for 3 months. She further notes overall fatigue that of been going on for the last 3 years. She is previously status post total thyroidectomy was on levothyroxine 100 mcg and had not filled it for 3 years until 1 month ago when she reinitiated therapy. On review of systems she notes urinary frequency which has been going on for the last 3 months as well. She has some occasional black spots in her vision but otherwise no significant visual complaints. Has family history of CVA in her father and cerebral aneurysm in her younger sister. in ED had lab work WBC 6.1, Hb 12.3 with MCV 102, platelets 305, NA 142, K4, BUN 13, CR 1.1, glucose 79, calcium 8.8, high-sensitivity troponin 11, INR 1.1, PTT 31 , EKG sinus rhythm rate of 53 bpm QTC 521 otherwise normal axis and intervals. No ST segment elevation or T WI. Chest radiograph with no acute process noncontrast CT head with no acute intracranial abnormality. NIHSS was 1 with right hand pronator drift dysmetria. Teleneurology was consulted in the ED and given her score and variability in timing the symptoms was recommended aspirin and Plavix for 21 days and to continue aspirin thereafter high intensity statin follow-up TSH A1c lipids and start rehab modalities to control blood pressure. Past Medical History Endocrine: Hypothyroidism Past Surgical History Past Surgical History Thyroidectomy Past Surgical History: Family History Family History Younger sister -cerebral aneurysm Family History: Stroke (Father) Social History Smoke: <1 pack per day ALCOHOL: none Drugs: None Current Medications Current Medications Active Scripts Active Flomax (Tamsulosin Hcl) 0.4 Mg Cap.er.24h 1 Cap PO DAILY Zofran Odt (Ondansetron) 4 Mg Tab.rapdis 4 Mg PO BID PRN Percocet 5-325 Mg Tablet (Oxycodone/Acetaminophen) 1 Each Tablet 1 Tab PO PRN Q6HRS PRN Levaquin (Levofloxacin) 500 Mg Tablet 500 Mg PO DAILY06 Flomax (Tamsulosin Hcl) 0.4 Mg Cap.er.24h 0.4 Mg PO QHS Synthroid (Levothyroxine Sodium) 88 Mcg Tablet 88 Mcg PO DAILY07 Hydrocodone-Apap 5-325 (Hydrocodone Bit/Acetaminophen) 1 Each Tablet 1 Tab PO PRN Q4HRS PRN Allergies Allergies: Coded Allergies: codeine (Verified Allergy, Intermediate, "I DONT KNOW THEY JUST TOLD ME I AM" , 03/15/16) ROS General: No: Chills, Night Sweats, Fatigue, Malaise, Appetite, Other PSYCHOLOGICAL ROS: No: Anxiety, Behavioral Disorder, Concentration difficultie, Decreased libido, Depression, Disorientation, Hallucinations, Hostility, Irritablity, Memory difficulties, Mood Swings, Obsessive thoughts, Physical abuse, Sexual abuse, Sleep disturbances, Suicidal ideation, Other Eyes: Yes Blurry vision; No Decreased vision, No Double vision, No Dry eyes, No Excessive tearing, No Eye Pain, No Itchy Eyes, No Loss of vision, No Photophobia, No [place]omata, No Uses contacts, No Uses glasses, No Other HEENT: No: Heacaches, Visual Changes, Hearing change, Nasal congestion, Nasal discharge, Oral lesions, Sinus pain, Sore Throat, Epistaxis, Sneezing, Snoring, Tinnitus, Vertigo, Vocal changes, Other ALLERGY AND IMMUNOLOGY: No: Hives, Insect Bite Sensitivity, Itchy/Watery Eyes, Nasal Congestion, Post Nasal Drip, Seasonal Allergies, Other Hematological and Lymphatic: No: Bleeding Problems, Blood Clots, Blood Transfusions, Brusing, Night Sweats, Pallor, Swollen Lymph Nodes, Other ENDOCRINE: No: Breast Changes, Galactorrhea, Hair Pattern Changes, Hot Flashes, Malaise/lethargy, Mood Swings, Palpitations, Polydipsia/polyuria, Skin Changes, Temperature Intolerance, Unexpected Weight Changes, Other Breast: No New/Changing Breast Lumps, No Nipple changes, No Nipple discharge, No Other Respiratory: No: Cough, Hemoptysis, Orthopnea, Pleuritic Pain, Shortness of breath, SOB with excertion, Sputum Changes, Stridor, Tachypnea, Wheezing, Other Cardiovascular: No Chest Pain, No Palpitations, No Orthopnea, No Paroxysmal Noc. Dyspnea, No Edema, No Lt Headedness, No Other Gastrointestinal: No Nausea, No Vomiting, No Abdominal Pain, No Diarrhea, No Constipation, No Melena, No Hematochezia, No Other Genitourinary: No Dysuria, No Frequency, No Incontinence, No Hematuria, No Retention, No Discharge, No Urgency, No Pain, No Flank Pain, No Other, No , No , No , No , No , No , No Musculoskeletal: Yes Muscular Weakness; No Gait Disturbance, No Joint Pain, No Joint Stiffness, No Joint Swelling, No Muscle Pain, No Pain In:, No Swelling In:, No Other Neurological: Yes Numbness/Tingling; No Behavorial Changes, No Bowel/Bladder ControlChng, No Confusion, No Dizziness, No Gait Disturbance, No Headaches, No Impaired Coord/balance, No Memory Loss, No Seizures, No Speech Problems, No Tremors, No Visual Changes, No Weakness, No Other Skin: No Dry Skin, No Eczema, No Hair Changes, No Lumps, No Mole Changes, No Mottling, No Nail Changes, No Pruritus, No Rash, No Skin Lesion Changes, No Other, No Acne Physical Exam General: Alert, Oriented X3, Cooperative, No acute distress HEENT: Atraumatic, PERRLA, EOMI, Mucous membr. moist/pink Lungs: Clear to auscultation, Normal air movement Heart: S1S2, RRR, no thrills, no rubs, no gallops, no murmurs Abdomen: Normal bowel sounds, Soft, No tenderness, No hepatosplenomegaly, No masses Rectal Exam: not examined Extremities: No clubbing, No cyanosis, No edema, Normal pulses, No tenderness/swelling Skin: No rashes, No breakdown, No significant lesion Neuro: Normal gait, Normal speech, Strength at 5/5 X4 ext, Normal tone, Sensat ion intact, Cranial nerves 3-12 NL, Reflexes 2+, Other (Right hand dysmetria positive pronator drift) Psych/Mental Status: Mental status NL, Mood NL Vitals Vitals Vital Signs Date Time Temp Pulse Resp B/P (MAP) Pulse Ox O2 Delivery O2 Flow Rate FiO2 09/12/21 08:28 98.6 54 18 155/85 (108) 100 Room Air 98.6 Labs Labs Laboratory Tests Test 09/12/21 08:20 09/12/21 08:26 White Blood Count 6.1 x10^3/uL (4.0-11.0) Red Blood Count 3.58 x10^6/uL (3.50-5.40) Hemoglobin 12.3 g/dL (12.0-15.5) Hematocrit 36.5 % (36.0-47.0) Mean Corpuscular Volume 102 fL (79-100) Mean Corpuscular Hemoglobin 34 pg (25-35) Mean Corpuscular Hemoglobin Concent 34 g/dL (31-37) Red Cell Distribution Width 13.6 % (11.5-14.5) Platelet Count 305 x10^3/uL (140-400) Neutrophils (%) (Auto) 65 % (31-73) Lymphocytes (%) (Auto) 27 % (24-48) Monocytes (%) (Auto) 6 % (0-9) Eosinophils (%) (Auto) 1 % (0-3) Basophils (%) (Auto) 1 % (0-3) Neutrophils # (Auto) 3.9 x10^3/uL (1.8-7.7) Lymphocytes # (Auto) 1.7 x10^3/uL (1.0-4.8) Monocytes # (Auto) 0.4 x10^3/uL (0.0-1.1) Eosinophils # (Auto) 0.0 x10^3/uL (0.0-0.7) Basophils # (Auto) 0.1 x10^3/uL (0.0-0.2) Prothrombin Time 14.0 SEC (11.7-14.0) Prothromb Time International Ratio 1.1 (0.8-1.1) Activated Partial Thromboplast Time 31 SEC (24-38) Troponin I High Sensitivity 11 ng/L (4-50) Glucose (Fingerstick) 82 mg/dL (70-99) Laboratory Tests Test 09/12/21 08:20 09/12/21 08:26 White Blood Count 6.1 x10^3/uL (4.0-11.0) Red Blood Count 3.58 x10^6/uL (3.50-5.40) Hemoglobin 12.3 g/dL (12.0-15.5) Hematocrit 36.5 % (36.0-47.0) Mean Corpuscular Volume 102 fL (79-100) Mean Corpuscular Hemoglobin 34 pg (25-35) Mean Corpuscular Hemoglobin Concent 34 g/dL (31-37) Red Cell Distribution Width 13.6 % (11.5-14.5) Platelet Count 305 x10^3/uL (140-400) Neutrophils (%) (Auto) 65 % (31-73) Lymphocytes (%) (Auto) 27 % (24-48) Monocytes (%) (Auto) 6 % (0-9) Eosinophils (%) (Auto) 1 % (0-3) Basophils (%) (Auto) 1 % (0-3) Neutrophils # (Auto) 3.9 x10^3/uL (1.8-7.7) Lymphocytes # (Auto) 1.7 x10^3/uL (1.0-4.8) Monocytes # (Auto) 0.4 x10^3/uL (0.0-1.1) Eosinophils # (Auto) 0.0 x10^3/uL (0.0-0.7) Basophils # (Auto) 0.1 x10^3/uL (0.0-0.2) Prothrombin Time 14.0 SEC (11.7-14.0) Prothromb Time International Ratio 1.1 (0.8-1.1) Activated Partial Thromboplast Time 31 SEC (24-38) Troponin I High Sensitivity 11 ng/L (4-50) Glucose (Fingerstick) 82 mg/dL (70-99) VTE Prophylaxis Ordered VTE Prophylaxis Devices: No VTE Pharmacological Prophylaxi: Yes Assessment/Plan Assessment/Plan Right arm weakness - pronator drift, dysmetria. aspirin and Plavix for 21 days and to continue aspirin thereafter high intensity statin follow-up TSH A1c lipids and start rehab modalities to control blood pressure. MRI/MRA head/neck. echo with bubble study Hypothyroidism - Goal TSH < 1 for h/o thyroid cancer Foot numbness - check B12 given macrocytosis, possibly hypothyroidism related. Could also have undiagnosed demyelinating disorder, f/u MRI Smoker - counseled on cessation Macrocytosis - check B12 Target Blood Pressure: SBP < 220 FEN - regular diet pending gerber PPX - lovenox FULL CODE Dispo - inpatient Justifications for Admission Other Justification CAROLYN DOUGLASS MD September 12, 2021 10:15
--- NOTE | 2021-09-12 10:30 | EKG ---
[facility] [address] [place] [address] Test Date: 2021-09-12 Test Time: 08:36:54 Pat Name: JERMAN ZHOU Department: Room: Gender: F [employer]: : 1975 Requested By: NAIDA GOFF Order Number: [id number] Reading MD: Garrick Lock MD Measurements Intervals [place] Rate: 53 P: 13 NH: 136 QRS: 20 QRSD: 80 T: 136 QT: 552 QTc: 521 Interpretive Statements SINUS RHYTHM NON-SPECIFIC ST/T CHANGES Electronically Signed On 09-12-2021 11:05:44 CDT by Garrick Lock MD
[2021-09-12 10:43] LABS: CALCIUM 8.8 mg/dL (8.5-10.1); CREATININE 1.1 mg/dL (0.6-1.0); GFR 64.4
[2021-09-12 12:00] VITALS: BP 163/90
[2021-09-12] MEDS ORDERED: LEVO100T5 PO (13:01)
[2021-09-12] MEDS ORDERED: ACETAMINOPHEN 325 MG TABLET. PO PRN (14:00)
[2021-09-12] MEDS ORDERED: ONDANSETRON ODT 4 MG TAB.RAPDIS. PO PRN (14:00)
[2021-09-12] MEDS ORDERED: CLOPIDOGREL BISULFATE 75 MG TABLET PO ONE (14:00)
[2021-09-12] MEDS ORDERED: GADOTERATE 5 MMOL/10ML VIAL. IVP ONE (14:00)
[2021-09-12] MEDS ORDERED: hydrALAZINE 20 MG/ML VIAL. IVP PRN (14:00)
[2021-09-12] MEDS ORDERED: ONDANSETRON PF 4 MG/2 ML VIAL. IVP PRN (14:00)
[2021-09-12] MEDS ORDERED: ASPIRIN CHEWABLE 81 MG TABLET. PO ONE (14:00)
[2021-09-12 14:54] LABS: CHOLESTEROL/HDL RATIO 2.6
[2021-09-12 15:00] VITALS: BP 141/88
--- NOTE | 2021-09-12 16:28 | PHYS DOC ---
Past Medical History Past Medical History: Hypothyroid, Kidney Stone Additional Past Medical Histor: THYROID CANCER Past Surgical History: No Surgical History Additional Past Surgical Histo: thyroidectomy Smoking Status: Current Some Day Smoker Alcohol Use: None Drug Use: None General Adult EDM: Chief Complaint: NEURO SYMPTOMS/DEFICITS HPI: HPI: Patient is a 46 year old female who presents to the emergency department with concerns for right upper extremity weakness and disorientation. Patient states that about 715 this morning she began to have some right upper extremity weakness. She states she also became disoriented and could not put her password into her work computer. She was able to call a friend who is a nurse who brought her here to the emergency department for evaluation. She denies any headache. She denies any other focal weakness or sensory changes. Review of Systems: Review of Systems: Constitutional: Denies fever or chills. [] Eyes: Denies change in visual acuity. [] HENT: Denies nasal congestion or sore throat. [] Respiratory: Denies cough or shortness of breath. [] Cardiovascular: Denies chest pain or edema. [] GI: Denies abdominal pain, nausea, vomiting, bloody stools or diarrhea. [] : Denies dysuria. [] Musculoskeletal: Denies back pain or joint pain. [] Integument: Denies rash. [] Neurologic: Denies headache Endocrine: Denies polyuria or polydipsia. [] Lymphatic: Denies swollen glands. [] Psychiatric: Denies depression or anxiety. [] Heart Score: C/O Chest Pain: No Family History: Family History: Noncontributory Allergies: Allergies: Allergies Coded Allergies Type Severity Reaction Last Updated Verified codeine Allergy Intermediate "I DONT KNOW THEY JUST TOLD ME I AM" 03/15/16 Yes Physical Exam: PE: Constitutional: Well developed, well nourished, no acute distress, non-toxic appearance. [] HENT: Normocephalic, atraumatic, bilateral external ears normal, oropharynx moist, no oral exudates, nose normal. [] Eyes: PERRLA, EOMI, conjunctiva normal, no discharge. [] Neck: Normal range of motion, no tenderness, supple, no stridor. [] Cardiovascular:Heart rate regular rhythm, no murmur [] Lungs & Thorax: Bilateral breath sounds clear to auscultation [] Abdomen: Bowel sounds normal, soft, no tenderness, no masses, no pulsatile masses. [] Skin: Warm, dry, no erythema, no rash. [] Back: No tenderness, no CVA tenderness. [] Extremities: No tenderness, no cyanosis, no clubbing, ROM intact, no edema. [] Neurologic: Alert and oriented X 3, normal motor function, normal sensory function, mild right upper extremity weakness. No sensory deficits. No ataxia. No dysdiadochokinesia. No aphasia or dysarthria. NIH stroke scale 1. [] Psychologic: Affect normal, judgement normal, mood normal. [] Current Patient Data: Labs: Laboratory Tests Test 09/12/21 08:20 09/12/21 08:26 09/12/21 10:05 White Blood Count 6.1 x10^3/uL (4.0-11.0) Red Blood Count 3.58 x10^6/uL (3.50-5.40) Hemoglobin 12.3 g/dL (12.0-15.5) Hematocrit 36.5 % (36.0-47.0) Mean Corpuscular Volume 102 fL (79-100) H Mean Corpuscular Hemoglobin 34 pg (25-35) Mean Corpuscular Hemoglobin Concent 34 g/dL (31-37) Red Cell Distribution Width 13.6 % (11.5-14.5) Platelet Count 305 x10^3/uL (140-400) Neutrophils (%) (Auto) 65 % (31-73) Lymphocytes (%) (Auto) 27 % (24-48) Monocytes (%) (Auto) 6 % (0-9) Eosinophils (%) (Auto) 1 % (0-3) Basophils (%) (Auto) 1 % (0-3) Neutrophils # (Auto) 3.9 x10^3/uL (1.8-7.7) Lymphocytes # (Auto) 1.7 x10^3/uL (1.0-4.8) Monocytes # (Auto) 0.4 x10^3/uL (0.0-1.1) Eosinophils # (Auto) 0.0 x10^3/uL (0.0-0.7) Basophils # (Auto) 0.1 x10^3/uL (0.0-0.2) Prothrombin Time 14.0 SEC (11.7-14.0) Prothrombin Time INR 1.1 (0.8-1.1) Activated Partial Thromboplast Time 31 SEC (24-38) Troponin I High Sensitivity 11 ng/L (4-50) Glucose (Fingerstick) 82 mg/dL (70-99) Sodium Level 142 mmol/L (136-145) Potassium Level 4.0 mmol/L (3.5-5.1) Chloride Level 106 mmol/L (98-107) Carbon Dioxide Level 28 mmol/L (21-32) Anion Gap 8 (6-14) Blood Urea Nitrogen 13 mg/dL (7-20) Creatinine 1.1 mg/dL (0.6-1.0) H Estimated GFR (Cockcroft-Gault) 64.4 Glucose Level 79 mg/dL (70-99) Calcium Level 8.8 mg/dL (8.5-10.1) Triglycerides Level 39 mg/dL (0-150) Cholesterol Level 234 mg/dL (0-200) H LDL Cholesterol, Calculated 135 mg/dL (0-100) H VLDL Cholesterol, Calculated 8 mg/dL (0-40) Non-HDL Cholesterol Calculated 143 mg/dL (0-129) H HDL Cholesterol 91 mg/dL (40-60) H Cholesterol/HDL Ratio 2.6 Thyroid Stimulating Hormone (TSH) 40.143 uIU/mL (0.358-3.74) H Laboratory Tests 09/12/21 08:20 Laboratory Tests 09/12/21 10:05 Vital Signs: Vital Signs Date Time Temp Pulse Resp B/P (MAP) Pulse Ox O2 Delivery O2 Flow Rate FiO2 09/12/21 15:00 98.3 59 18 141/88 (105) 100 Room Air 98.3 EKG: EKG: EKG shows a normal sinus rhythm with a rate of 53. There is a prolonged QT intervals. Otherwise intervals normal. [place] is normal. There are anterior T wave abnormalities. No evidence of acute ischemia or infarction. Radiology/Procedures: Radiology/Procedures: XR CHEST 1V History: Stroke alert Comparison: None. Technique: AP radiograph of the chest. Findings: The lungs are adequately and symmetrically inflated. No airspace consolidation, pleural effusion or pneumothorax. The cardiomediastinal silhouette and pulmonary vasculature are within normal limits. No acute osseous abnormality. Soft tissues are unremarkable. Impression: 1. No acute cardiopulmonary process. Electronically signed by: Scott Tsai MD (09/12/2021 9:00 AM) [id number] Impression: TIA Course & Med Decision Making: Course & Med Decision Making Patient remained hemodynamically stable in the emergency department. She was evaluated at the bedside with a physical exam. A stroke alert was called. Patient's NIH stroke scale was 1 but symptoms appear to be resolving. Head CT without any evidence of any acute abnormality. Chest x-ray clear. EKG shows no evidence of any acute ischemic changes. Patient was evaluated the bedside by teleneurology who also feels that her symptoms are resolving and she is not a tPA candidate at this time. Discussed patient with hospitalist and will admit to the hospitalist service for further evaluation and management of this likely TIA. Critical care time: I spent greater than 30 minutes of critical care time in the care of this patient. This time exclusive of procedures. Dragon Disclaimer: Dragon Disclaimer: This electronic medical record was generated, in whole or in part, using a voice recognition dictation system. Departure Departure Impression: Primary Impression: TIA (transient ischemic attack) Disposition: ADMITTED INPATIENT Condition: NAIDA SUE MD September 12, 2021 16:28
[2021-09-12 19:40] VITALS: BP 136/82
[2021-09-12 23:17] VITALS: BP 140/77
[2021-09-13 03:09] LABS: HEMOGLOBIN A1C 4.6 % (4.8-5.6)
[2021-09-13 03:19] VITALS: BP 135/89
[2021-09-13] MEDS ORDERED: LEVOTHYROXINE 100 MCG TABLET PO SCH (06:00)
[2021-09-13 07:00] VITALS: BP 150/80
[2021-09-13] MEDS ORDERED: CLOPIDOGREL BISULFATE 75 MG TABLET PO SCH (08:00)
[2021-09-13] MEDS ORDERED: ASPIRIN CHEWABLE 81 MG TABLET. PO SCH (08:00)
--- NOTE | 2021-09-13 08:01 | RAD ---
MRI of the brain without contrast 09/12/2021 Clinical History: Right-sided weakness.. Technique: Unenhanced T1-weighted sagittal and axial, T2-weighted axial and coronal and FLAIR, gradie nt echo and diffusion-weighted axial images of the brain were obtained. Findings: Comparison is made to the patient's CT scan of the head performed earlier same day. The ventricles and sulci are within normal limits in size and configuration. Patchy and several small focal areas of increased signal intensity are seen within the periventricular and subcortical white matter of both cerebral hemispheres on the FLAIR and T2-weighted images consistent with areas of mild small vessel ischemic disease. A somewhat curvilinear area of restricted diffusion is seen involving the left parietal lobe which in volves the cortex and measures 1.2 cm in size. This is consistent with an area of acute ischemia/infa rction. There is no surrounding edema or associated mass effect. No additional acute parenchymal abnormality is seen. No extra-axial fluid collection is noted. Mild mucosal thickening is seen scattered throughout the paranasal sinuses. Normal flow voids are see n within the major vascular structures surrounding the brain parenchyma. 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 IMPRESSION: Area of acute ischemia/infarction is seen involving the left parietal lobe. There is no s urrounding edema or associated mass effect. This finding was discussed with the patient's nurse. FOR INTERNAL CODING PURPOSES RESULT CODE: (C) Electronically signed by: Hakan Lo MD (09/13/2021 7:58 AM) [id number]
--- NOTE | 2021-09-13 08:03 | RAD ---
MRA of the brain without contrast 09/12/2021 Clinical History: Right-sided weakness. Technique: Using 3-D time of flight techniques, a MRA of the major arterial structures surrounding th e paimiut of [place] was performed. Findings: Comparison is made to the patient's MRI of the brain performed concurrently with this study . MRA images of the anterior and posterior circulations are within normal limits. No area of stenosis o r occlusion is seen. No intracranial aneurysm is seen. Impression: Negative study. Electronically signed by: Hakan Lo MD (09/13/2021 8:00 AM) [id number]
--- NOTE | 2021-09-13 08:06 | RAD ---
MRA of the Neck without and with Contrast 09/12/2021 Clinical History: Right-sided weakness. Technique: Using 2D time of flight techniques, a MRA of the carotid and verterbral arterial structure s within the neck was performed. After the dynamic intravenous administration of 10 cc of Clariscan, enhanced, 3D time of flight coronal images of the neck and upper chest were obtained. 3D MIP images were generated in multiple projections for a contrast-enhanced MRA. Findings: The postcontrast images are degraded by significant venous contamination. The origins of the brachiocephalic, left common carotid and left subclavian arteries from the thoraci c aortic arch are are not well-visualized. The origin of the right common carotid is grossly patent. The origin of both vertebral arteries is not well-visualized. The common carotid arteries, carotid bifurcations, and internal carotid arteries are within normal li mits. No hemodynamically significant stenosis or area of occlusion is seen. The left vertebral artery is dominant. Both vertebral arteries demonstrate normal antegrade flow. No area stenosis or occlusion is seen. Impression: Negative study. Stenosis calculation for MRA are based on measurement of the distal internal carotid artery diameter in accordance with the NASCET methodology. Electronically signed by: Hakan Lo MD (09/13/2021 8:04 AM) [id number]
--- NOTE | 2021-09-13 10:13 | PDOC ---
[facility] PROGRESS NOTE Date of Service DOS: DATE: 09/13/21 TIME: 10:01 Chief Complaint Chief Complaint Acute Parietal CVA - Right arm weakness - pronator drift, dysmetria. aspirin and Plavix for 21 days and to continue aspirin thereafter high intensity statin follow-up TSH A1c lipids and start rehab modalities to control blood pressure. echo with bubble study Hypothyroidism - Goal TSH < 1 for h/o thyroid cancer Foot numbness - check B12 given macrocytosis, possibly hypothyroidism related. Could also have undiagnosed demyelinating disorder, f/u MRI Smoker - counseled on cessation Macrocytosis - check B12 Target Blood Pressure: SBP < 220 FEN - regular diet pending mayes PPX - lovenox FULL CODE Dispo - inpatient History of Present Illness History of Present Illness Ms Arreguin is a 46yo female with PMHx hypothyroidism s/p total thyroidectomy who comes into ED c/o right hand uncoordination. At 7:15 in the morning says she was trying to put toothbrush into her mouth and missed, and missed trying to place it back after brushing with right arm. She also tried to login using her password on her computer for work and continue to hit the wrong babcock. She notes she is also had bilateral lower extremity numbness that has been going on for 3 months. She further notes overall fatigue that of been going on for the last 3 years. She is previously status post total thyroidectomy was on levothyroxine 100 mcg and had not filled it for 3 years until 1 month ago when she reinitiated therapy. On review of systems she notes urinary frequency which has been going on for the last 3 months as well. She has some occasional black spots in her vision but otherwise no significant visual complaints. Has family history of CVA in her father and cerebral aneurysm in her younger sister. in ED had lab work WBC 6.1, Hb 12.3 with MCV 102, platelets 305, NA 142, K4, BUN 13, CR 1.1, glucose 79, calcium 8.8, high-sensitivity troponin 11, INR 1.1, PTT 31 , EKG sinus rhythm rate of 53 bpm QTC 521 otherwise normal axis and intervals. No ST segment elevation or T [place]. Chest radiograph with no acute process noncontrast CT head with no acute intracranial abnormality. NIHSS was 1 with right hand pronator drift dysmetria. Teleneurology was consulted in the ED and given her score and variability in timing the symptoms was recommended aspirin and Plavix for 21 days and to continue aspirin thereafter high intensity statin follow-up TSH A1c lipids and start rehab modalities to control blood pressure. 09/13: Area of acute ischemia/infarction is seen involving the left parietal lobe. Feeling improved still with little right dysmetria but able to write her name. Vitals/I&O Vitals/I&O: Vital Signs Date Time Temp Pulse Resp B/P (MAP) Pulse Ox O2 Delivery O2 Flow Rate FiO2 09/13/21 07:00 97.8 52 18 150/80 (103) 96 Room Air 97.8 I & O 09/12/21 09/12/21 09/13/21 15:00 23:00 07:00 Intake Total 800 ml 620 ml Balance 800 ml 620 ml Physical Exam General: Alert, Oriented X3, Cooperative, No acute distress Lungs: Clear Abdomen: Normal bowel sounds, Soft, No tenderness, No hepatosplenomegaly, No masses Extremities: No clubbing, No cyanosis, No edema, Normal pulses, No tenderness/swelling Skin: No rashes, No breakdown, No significant lesion Labs Labs: Laboratory Tests Test 09/12/21 10:05 Sodium Level 142 mmol/L (136-145) Potassium Level 4.0 mmol/L (3.5-5.1) Chloride Level 106 mmol/L (98-107) Carbon Dioxide Level 28 mmol/L (21-32) Anion Gap 8 (6-14) Blood Urea Nitrogen 13 mg/dL (7-20) Creatinine 1.1 mg/dL (0.6-1.0) Estimated GFR (Cockcroft-Gault) 64.4 Glucose Level 79 mg/dL (70-99) Hemoglobin A1c 4.6 % (4.8-5.6) Calcium Level 8.8 mg/dL (8.5-10.1) Magnesium Level 2.2 mg/dL (1.8-2.4) Triglycerides Level 39 mg/dL (0-150) Cholesterol Level 234 mg/dL (0-200) LDL Cholesterol, Calculated 135 mg/dL (0-100) VLDL Cholesterol, Calculated 8 mg/dL (0-40) Non-HDL Cholesterol Calculated 143 mg/dL (0-129) HDL Cholesterol 91 mg/dL (40-60) Cholesterol/HDL Ratio 2.6 Vitamin B12 Level 542 pg/mL (247-911) Thyroid Stimulating Hormone (TSH) 40.143 uIU/mL (0.358-3.74) Assessment and Plan Assessmemt and Plan Problems Medical Problems: (1) TIA (transient ischemic attack) Status: Acute Comment Review of Relevant I have reviewed the following items celia (where applicable) has been applied. Medications: Current Medications Medications (Trade) Dose Ordered Sig/Melissa Route PRN Reason Start Time Stop Time Status Last Admin Dose Admin Ondansetron HCl (Zofran Odt) 4 mg PRN Q4HRS PRN PO NAUSEA 09/12/21 14:00 09/12/21 16:26 Aspirin (Aspirin Chewable) 81 mg 1X ONCE PO 09/12/21 14:00 09/12/21 14:01 DC 09/12/21 16:25 Aspirin (Aspirin Chewable) 81 mg DAILYWBKFT PO 09/13/21 08:00 09/13/21 08:34 Clopidogrel Bisulfate (Plavix) 75 mg 1X ONCE PO 09/12/21 14:00 09/12/21 14:01 DC 09/12/21 16:25 Clopidogrel Bisulfate (Plavix) 75 mg DAILYWBKFT PO 09/13/21 08:00 10/03/21 07:59 09/13/21 08:34 Levothyroxine Sodium (Synthroid) 100 mcg DAILY06 PO 09/13/21 06:00 09/13/21 05:32 Gadoterate Meglumine (Clariscan) 10 ml 1X ONCE IVP 09/12/21 14:00 09/12/21 14:01 DC 09/12/21 15:58 Justifications for Admission Other Justification CAROLYN DOUGLASS MD September 13, 2021 10:13
[2021-09-13 11:00] VITALS: BP 150/86
[2021-09-13 15:00] VITALS: BP 142/81
--- NOTE | 2021-09-13 15:29 | NUR ---
SS following for discharge planning. SS reviewed pt chart and discussed with pt RN. Pt is from home and is currently on room air. Neurology following. PO diet. PT/OT ordered. OT recommended home. SS will continue to follow for discharge planning.
--- NOTE | 2021-09-13 16:35 | CARD ---
MR#: [id number] Date of Study: 09/13/2021 Ordering Physician: CAROLYN DOUGLASS, Referring Physician: CAROLYN DOUGLASS, Tech: Judi Jimenez [facility] APPROVED REPORT EXAM: Two-dimensional and M-mode echocardiogram with Doppler and color Doppler. Other Information Quality : GoodHR: 47bpm Rhythm : NSR INDICATION CVA/TIA RISK FACTORS Hypertension 2D DIMENSIONS Left Atrium(2D)2.8 (1.6-4.0cm)IVSd1.1 (0.7-1.1cm) Aortic Root(2D)3.1 (2.0-3.7cm)LVDd4.9 (3.9-5.9cm) LVOT Diameter2.2 (1.8-2.4cm)PWd1.3 (0.7-1.1cm) LVDs4.0 (2.5-4.0cm)FS (%) 19.4 % SV45.9 ml Aortic Valve AoV Peak Geovani.100.0cm/sAoV VTI19.2cm AO Peak GR.4.0mmHgLVOT Peak Geovani.69.2cm/s AO Mean GR.2mmHgAVA (VMAX)2.54cm2 Mitral Valve MV E Xwdmmuxb27.7cm/sMV DECEL [id number] MV A Rxxavcgz42.9cm/sE/A Ratio1.1 Tricuspid Valve TR P. [id number]/sTR Peak Gr.10mmHg LEFT VENTRICLE The left ventricle is normal size. There is mild concentric left ventricular hypertrophy. LV systolic function is mildly decreased with an ejection fraction of 45%. There is very mild global hypokinesis of the left ventricle. The left ventricular diastolic function and filling is normal for age. RIGHT VENTRICLE The right ventricle is normal size. There is normal right ventricular wall thickness. The right ventr icular systolic function is normal. ATRIA The left atrium size is normal. The right atrium size is normal. The interatrial septum is intact wit h no evidence for an atrial septal defect or patent foramen ovale as noted on 2-D or Doppler imaging. AORTIC VALVE The aortic valve is normal in structure and function. Doppler and Color Flow revealed no significant aortic regurgitation. There is no significant aortic valvular stenosis. MITRAL VALVE The mitral valve is normal in structure and function. There is no evidence of mitral valve prolapse. There is no mitral valve stenosis. Doppler and Color-flow revealed mild mitral regurgitation. TRICUSPID VALVE The tricuspid valve is normal in structure and function. Doppler and Color Flow revealed trace tricus pid regurgitation. Estimated PAP 15-20 mmHg. There is no tricuspid valve stenosis. PULMONIC VALVE The pulmonary valve is normal in structure and function. Doppler and Color Flow revealed no pulmonic valvular regurgitation. GREAT VESSELS The aortic root is normal in size. The ascending aorta is normal in size. The IVC is normal in size a nd collapses >50% with inspiration. PERICARDIAL EFFUSION There is no evidence of significant pericardial effusion. Critical Notification Critical Value: No <Conclusion> The left ventricle is normal size. LV systolic function is mildly decreased with an ejection fraction of 45%. There is very mild global hypokinesis of the left ventricle. There is mild concentric left ventricular hypertrophy. The interatrial septum is intact with no evidence for an atrial septal defect or patent foramen ovale as noted on 2-D or Doppler imaging. Doppler and Color Flow revealed no significant aortic regurgitation. There is no significant aortic valvular stenosis. Doppler and Color-flow revealed mild mitral regurgitation. Doppler and Color Flow revealed trace tricuspid regurgitation. Estimated PAP 15-20 mmHg. Signed by : Gael Rivas MD Electronically Approved : 09/13/2021 16:35:04
[2021-09-13] MEDS ORDERED: ATOR40TA59 PO (17:09)
[2021-09-13] MEDS ORDERED: ASPI-630 PO (17:09)
[2021-09-13] MEDS ORDERED: LEVO100T5 PO (17:09)
[2021-09-13] MEDS ORDERED: CLOP75TA PO (17:09)
--- NOTE | 2021-09-13 17:48 | PDOC3 ---
Discharge Summary Visit Information Date of Admission: September 12, 2021 Date of Discharge: September 13, 2021 Admitting Diagnosis: Right sided weakness Final Diagnosis Problems Medical Problems: (1) TIA (transient ischemic attack) Status: Acute Brief Hospital Course Allergies Allergies Coded Allergies Type Severity Reaction Last Updated Verified codeine Allergy Intermediate "I DONT KNOW THEY JUST TOLD ME I AM" 03/15/16 Yes Vital Signs Vital Signs Date Time Temp Pulse Resp B/P (MAP) Pulse Ox O2 Delivery O2 Flow Rate FiO2 09/13/21 15:00 97.9 52 18 142/81 (101) 99 Room Air 97.9 Lab Results Laboratory Tests Test 09/12/21 08:20 09/12/21 08:26 09/12/21 10:05 White Blood Count 6.1 x10^3/uL (4.0-11.0) Red Blood Count 3.58 x10^6/uL (3.50-5.40) Hemoglobin 12.3 g/dL (12.0-15.5) Hematocrit 36.5 % (36.0-47.0) Mean Corpuscular Volume 102 fL (79-100) Mean Corpuscular Hemoglobin 34 pg (25-35) Mean Corpuscular Hemoglobin Concent 34 g/dL (31-37) Red Cell Distribution Width 13.6 % (11.5-14.5) Platelet Count 305 x10^3/uL (140-400) Neutrophils (%) (Auto) 65 % (31-73) Lymphocytes (%) (Auto) 27 % (24-48) Monocytes (%) (Auto) 6 % (0-9) Eosinophils (%) (Auto) 1 % (0-3) Basophils (%) (Auto) 1 % (0-3) Neutrophils # (Auto) 3.9 x10^3/uL (1.8-7.7) Lymphocytes # (Auto) 1.7 x10^3/uL (1.0-4.8) Monocytes # (Auto) 0.4 x10^3/uL (0.0-1.1) Eosinophils # (Auto) 0.0 x10^3/uL (0.0-0.7) Basophils # (Auto) 0.1 x10^3/uL (0.0-0.2) Prothrombin Time 14.0 SEC (11.7-14.0) Prothromb Time International Ratio 1.1 (0.8-1.1) Activated Partial Thromboplast Time 31 SEC (24-38) Troponin I High Sensitivity 11 ng/L (4-50) Glucose (Fingerstick) 82 mg/dL (70-99) Sodium Level 142 mmol/L (136-145) Potassium Level 4.0 mmol/L (3.5-5.1) Chloride Level 106 mmol/L (98-107) Carbon Dioxide Level 28 mmol/L (21-32) Anion Gap 8 (6-14) Blood Urea Nitrogen 13 mg/dL (7-20) Creatinine 1.1 mg/dL (0.6-1.0) Estimated GFR (Cockcroft-Gault) 64.4 Glucose Level 79 mg/dL (70-99) Hemoglobin A1c 4.6 % (4.8-5.6) Calcium Level 8.8 mg/dL (8.5-10.1) Magnesium Level 2.2 mg/dL (1.8-2.4) Triglycerides Level 39 mg/dL (0-150) Cholesterol Level 234 mg/dL (0-200) LDL Cholesterol, Calculated 135 mg/dL (0-100) VLDL Cholesterol, Calculated 8 mg/dL (0-40) Non-HDL Cholesterol Calculated 143 mg/dL (0-129) HDL Cholesterol 91 mg/dL (40-60) Cholesterol/HDL Ratio 2.6 Vitamin B12 Level 542 pg/mL (247-911) Thyroid Stimulating Hormone (TSH) 40.143 uIU/mL (0.358-3.74) Brief Hospital Course Ms Arreguin is a 46yo female with PMHx hypothyroidism s/p total thyroidectomy who comes into ED c/o right hand uncoordination. At 7:15 in the morning says she was trying to put toothbrush into her mouth and missed, and missed trying to place it back after brushing with right arm. She also tried to login using her password on her computer for work and continue to hit the wrong babcock. She notes she is also had bilateral lower extremity numbness that has been going on for 3 months. She further notes overall fatigue that of been going on for the last 3 years. She is previously status post total thyroidectomy was on levothyroxine 100 mcg and had not filled it for 3 years until 1 month ago when she reinitiated therapy. On review of systems she notes urinary frequency which has been going on for the last 3 months as well. She has some occasional black spots in her vision but otherwise no significant visual complaints. Has family history of CVA in her father and cerebral aneurysm in her younger sister. in ED had lab work WBC 6.1, Hb 12.3 with MCV 102, platelets 305, NA 142, K4, BUN 13, CR 1.1, glucose 79, calcium 8.8, high-sensitivity troponin 11, INR 1.1, PTT 31 , EKG sinus rhythm rate of 53 bpm QTC 521 otherwise normal axis and intervals. No ST segment elevation or T [place]. Chest radiograph with no acute process noncontrast CT head with no acute intracranial abnormality. NIHSS was 1 with right hand pronator drift dysmetria. Teleneurology was consulted in the ED and given her score and variability in timing the symptoms was recommended aspirin and Plavix for 21 days and to continue aspirin thereafter high intensity statin follow-up TSH A1c lipids and start rehab modalities to control blood pressure. 09/13: Area of acute ischemia/infarction is seen involving the left parietal lobe. Feeling improved still with little right dysmetria but able to write her name. Echocardiogram with bubble study with mild concentric LVH and EF 45% per cardiology interpretation negative bubble study. Normal pulmonary pressures. Counseled on importance of 21 days of Plavix aspirin and statin until further notice follow-up outpatient with neurology she prefers to go to [facility] understandably as she is employed there. Importance of continuing her levothyroxine 100 mcg daily on an empty stomach emphasized and referral for outpatient occupational therapy. Consults: Neurology Problem list: Acute Parietal CVA - Right arm weakness - pronator drift, dysmetria. aspirin and Plavix for 21 days and to continue aspirin thereafter high intensity statin follow-up TSH A1c lipids and start rehab modalities to control blood pressure. Hypothyroidism - Goal TSH < 1 for h/o thyroid cancer Foot numbness - improving, possibly hypothyroidism related. Smoker - counseled on cessation Macrocytosis - check B12 Target Blood Pressure: SBP < 220 Greater than 30 minutes spent on d/c home with self care Discharge Information Condition at Discharge: Improved Follow Up: Weeks (1) Disposition/Orders: D/C to Home Scheduled Aspirin (Aspirin) 81 Mg Tab.chew, 81 MG PO DAILYWBKFT for CVA for 30 Days, #30 Ref 11 Prescribed by: CAROLYN DOUGLASS MD on 09/13/211708 Atorvastatin Calcium (Atorvastatin Calcium) 40 Mg Tablet, 1 TAB PO QHS for CVA for 30 Days, #30 Ref 5 Prescribed by: CAROLYN DOUGLASS MD on 09/13/211708 Clopidogrel Bisulfate (Clopidogrel) 75 Mg Tablet, 75 MG PO DAILYWBKFT for CVA for 21 Days, #21 Prescribed by: CAROLYN DOUGLASS MD on 09/13/211708 Levothyroxine Sodium (Levothyroxine Sodium) 100 Mcg Tablet, 1 TAB PO DAILY07 for THYROIDECTOMY MDD 100 for 30 Days, #30 Ref 11 Prescribed by: CAROLYN DOUGLASS MD on 09/13/211708 Justicifation of Admission Dx: Justifications for Admission: Justification of Admission Dx: Yes CAROLYN DOUGLASS MD September 13, 2021 17:48
== END 2021-09-13 18:02 | disposition home or self-care (01) | DRG 65 ==
LOC: ER 08:09 → 6 SOUTH 10:11
PROVIDERS: ADMIT Internal Medicine; ATTEND Internal Medicine
DX: I63.9 Cerebral infarction, unspecified (principal); G81.91 Hemiplegia, unspecified affecting right dominant side; Z79.01 Long term (current) use of anticoagulants; D75.89 Other specified diseases of blood and blood-forming organs; E89.0 Postprocedural hypothyroidism; F17.210 Nicotine dependence, cigarettes, uncomplicated; G51.0 Bell's palsy; R29.701 NIHSS score 1; Z79.890 Hormone replacement therapy; Z82.3 Family history of stroke; Z85.850 Personal history of malignant neoplasm of thyroid; Z87.442 Personal history of urinary calculi; Z88.8 Allergy status to other drugs, medicaments and biological substances
CPT/HCPCS: 36415; 70450; 70544; 70548; 70551; 71045; 80048; 80061; 82607; 82962; 83036; 83735; 84443; 84484; 85025; 85610; 85730; 93005; 93306; A9575; 97110-GO; 97110-GP; 99285-25; C8929; G0378